=== PATIENT | female | born 1950 | race Caucasian/White ===

== ENCOUNTER → 2018-06-22 | Outpatient (CLI) | payer OTHER, MEDICARE ==
[~2018-06-22] MED LIST: ASPI81EC PO; CALCAVITDA PO; DIAZ2 PO; ERGO400 PO; GLUCHON PO; HYDACE5 PO; KETO10 PO; LEVSOD125 PO; METCELP PO
== END | disposition home or self-care (01) ==
LOC: LAB SHORT 15:51 → LAB 15:51
DX: N39.0 Urinary tract infection, site not specified (principal)
CPT/HCPCS: 87077; 87086; 87186